=== PATIENT | male | born 1975 | race Caucasian/White ===

== ENCOUNTER 2018-10-25 12:14 | Emergency (ER) | payer SELFPAY ==
--- NOTE | 2018-10-25 13:24 | EDM.PDOC ---
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 Patient travels for work state. 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 Patient ran out of his medications this week. Denies any chest pain, shortness of breath , fevers, chills. Review of systems: As per history of present illness and below otherwise all systems reviewed and negative. Past medical history: As per history of present illness and as reviewed below otherwise noncontributory. Surgical history: As per history of present illness and as reviewed below otherwise noncontributory. Social history: No reported history of drug or alcohol abuse. Family history: As per history of present illness and as reviewed below otherwise noncontributory. Physical exam: General: Well developed, well nourished in NAD HEENT: Atraumatic, normocephalic, pupils reactive, negative for conjunctival pallor or scleral icterus, mucous membranes moist, throat clear, neck supple, nontender, trachea midline. Lungs: Clear to auscultation, breath sounds equal bilaterally, chest nontender. Heart: S1S2, regular, negative for clicks, rubs, or JVD. Abdomen: NABS, Soft, nondistended, nontender. Negative for masses or hepatosplenomegaly. Negative for costovertebral tenderness. Pelvis: Stable nontender. Genitourinary: Deferred. Rectal: Deferred. Extremities: Minimal edema, multiple ecchymotic areas and scarring on his left lower extremity. Pulses are palpable distally, moves toes and sensation is intact., negative for cords or calf pain. Neurovascular unremarkable. Neuro: Awake, alert, oriented. Cranial nerves II through XII unremarkable. Cerebellum unremarkable. Motor and sensory unremarkable throughout. Exam nonfocal. Skin:warm and dry Diagnostics: ultrasound left leg positive DVT Therapeutics: None ED Course: unRemarkable Impression: Medication Refill Prescriptions: eliquis Plan: Follow-up with primary care Definitive disposition and diagnosis as appropriate pending reevaluation and review of above. Left foot Pain Score (Numeric/FACES): 5 - Related Data Allergies Allergy/AdvReac Type Severity Reaction Status Date / Time iodine Allergy Cannot Verified 10/25/18 12:46 Remember Penicillins Allergy Hives Verified 10/25/18 12:45 Sulfa (Sulfonamide Allergy Airway Verified 10/25/18 12:46 Antibiotics) Tightness Home Meds: Home Meds Apixaban [Eliquis] 5 mg PO BID 10/25/18 [History] Apixaban [Eliquis] 5 mg PO BID #30 tablet 10/25/18 [Rx] Lisinopril 40 mg PO DAILY 10/25/18 [History] Venlafaxine HCl [Venlafaxine ER] 150 mg PO DAILY 10/25/18 [History] Past Medical History Cardiovascular History: Reports: Blood Clots/VTE/DVT Psychiatric History: Reports: None - Infectious Disease History Infectious Disease History: Reports: None - Past Surgical History Musculoskeletal Surgical History: Reports: Arthroscopic Procedure, Knee Replacement Social & Family History - Family History Family Medical History: Noncontributory - Tobacco Use Smoking Status *Q: Never Smoker - Caffeine Use Caffeine Use: Reports: None - Recreational Drug Use Recreational Drug Use: No Review of Systems - Review of Systems Review Of Systems: ROS reveals no pertinent complaints other than HPI. ED EXAM, GENERAL - Physical Exam Exam: See Below (see history of present illness) Course - Vital Signs Last Recorded V/S: Last Vital Signs Temp 97.8 F 10/25/18 12:47 Pulse 112 H 10/25/18 14:41 Resp 18 10/25/18 12:47 BP 127/99 H 10/25/18 14:41 Pulse Ox 96 10/25/18 14:41 Departure - Departure Time of Disposition: 14:31 Disposition: Home, Self-Care 01 Condition: Good Clinical Impression: Medication refill DVT (deep venous thrombosis) Qualifiers: DVT location: lower extremity Affected thrombotic vein of extremity: unspecified vein of extremity Chronicity: chronic Laterality: left Qualified Code(s): I82.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 This information is to outline your options for follow-up care. We provide all patients seen in our emergency department with a follow-up referral. The need for follow-up, as well as the timing and circumstances, are variable depending upon the specifics of your emergency department visit. If you don't have a primary care physician on staff, we will provide you with a referral. We always advise you to contact your personal physician following an emergency department visit to inform them of the circumstance of the visit and for follow-up with them and/or the need for any referrals to a consulting specialist. The emergency department will also refer you to a specialist when appropriate. This referral assures that you have the opportunity for follow-up care with a specialist. All of these measure are taken in an effort to provide you with optimal care, which includes your follow-up. Under all circumstances we always encourage you to contact your private physician who remains a resource for coordinating your care. When calling for follow-up care, please make the office aware that this follow-up is from your recent emergency room visit. If for any reason you are refused follow-up, please contact the [facility] Emergency Department at and asked to speak to the emergency department charge nurseNing العراقي directed [facility] [address] [place] [id number]
--- NOTE | 2018-10-25 14:21 | US ---
ULTRASOUND EXAMINATION OF the left lower extremity WITH DOPPLER HISTORY: Pain FINDINGS: Examination of the left leg was performed from the groin to the calf region. There is a filling defect within the distal femoral vein extending into the calf and greater saphenous vein. The proximal femoral vein, common femoral vein appear patent and compressible. IMPRESSION: Deep vein thrombus extending from the distal femoral vein into the calf and including the greater saphenous vein.
== END 2018-10-25 14:42 | disposition home or self-care (01) ==
LOC: MW.ED 12:14
DX: I82.502 Chronic embolism and thrombosis of unspecified deep veins of left lower extremity (principal); Z76.0 Encounter for issue of repeat prescription; Z88.0 Allergy status to penicillin; Z91.09 Other allergy status, other than to drugs and biological substances; Z88.2 Allergy status to sulfonamides; Z79.899 Other long term (current) drug therapy
CPT/HCPCS: 93971-26-LT; 93971-LT; 99282-25; 99283